=== PATIENT | male | born 1985 | race African-American/Black ===

== ENCOUNTER 2019-02-05 18:45 | Emergency (ER) | payer OTHER ==
[2019-02-05 19:05] VITALS: BP 140/72; PULSE 52; TEMP 98.4; BMI 20.6
[2019-02-05] MEDS ORDERED: KETOROLAC TROMETHAMINE 60 MG/2 ML VIAL IM ONE (19:23)
[2019-02-05] MEDS ORDERED: KETOROLAC TROMETHAMINE 60 MG/2 ML VIAL ONE (19:38)
--- NOTE | 2019-02-05 21:54 | PDOC ---
Documentation entered by Sam Doshi SCRIBE, acting as scribe for Simon Fields MD. Simon Fields MD: This documentation has been prepared by the Tico mora Daniel, SCRIBE, under my direction and personally reviewed by me in its entirety. I confirm that the documentation accurately reflects all work , treatment, procedures, and medical decision making performed by me. History of Present Illness - General Chief Complaint: Toothache Stated Complaint: DENTAL PAIN History Source: Patient Exam Limitations: No Limitations - History of Present Illness Initial Comments: 02/05/19 19:24 The patient is a 33 year old male with no past medical history here today for evaluation of left jaw pain. The patient reports that since he received an injection from his dentist during a procedure he has had intermittent left submental jaw pain that was worse today. He states that the pain is alleviated by massage of his jaw. Allergies: NKA ROS General: No fevers or chills, no weakness, no weight loss HEENT: No change in vision. No sore throat,. No ear pain CardioVascular: No chest pain or shortness of breath Respiratory:No cough, or wheezing. Gastrointestinal: no nausea, vomiting, diarrhea or constipation, No rectal bleeding Genitourinary: No dysuria, hematuria, or frequency Musculoskeletal: +left submental jaw pain. No joint or muscle pain or swelling Neurologic: No headache, vertigo, dizziness or loss of consciousness Psychiatric: nor depression Skin: No rashes or easy bruising Endocrine: no increased thirst or abnormal weight change Allergic: no skin or latex allergy All other systems reviewed and normal PE GENERAL: The patient is awake, alert, and fully oriented, in no acute distress. HEAD: +left submental tenderness to palpation. No masses, no erythema, normal periodontal tissue without any sign of infection, normal dental exam. Normal with no signs of trauma. EYES: Pupils equal, round and reactive to light, extraocular movements intact, sclera anicteric, conjunctiva clear. EXTREMITIES: Normal range of motion, no edema. NEUROLOGICAL: Normal speech, normal gait. PSYCH: Normal mood, normal affect. SKIN: Warm, Dry, normal turgor, no rashes or lesions noted. Assessment and plan: This is a 33-year-old male who comes in complaining of left submental jaw pain. Patient attributed to an injection he had from a dentist. Patient said the pain is intermittent. Patient has not taken anything for the pain. Patient mentation was otherwise normal with no erythema tenderness or infections of the gums or periodontal tissue Patient given Toradol for the pain and a prescription for naproxen sent to his pharmacy Patient told to follow-up with a dentist if symptoms persisted. Past History - Past Medical History Allergies/Adverse Reactions: Allergies Allergy/AdvReac Type Severity Reaction Status Date / Time No Known Allergies Allergy Verified 02/05/19 18:47 Home Medications: Ambulatory Orders Naproxen 500 mg PO BID #14 tablet 02/05/19 COPD: No - Psycho Social/Smoking Cessation Hx Smoking History: Current some day smoker Have you smoked in the past 12 months: Yes Number of Cigarettes Smoked Daily: 1 Information on smoking cessation initiated: Yes Hx Alcohol Use: Yes (OCCASIONAL) *Physical Exam - Vital Signs Last Vital Signs Temp Pulse Resp BP Pulse Ox 98.4 F 52 L 16 140/72 100 02/05/19 18:46 02/05/19 18:46 02/05/19 18:46 02/05/19 18:46 02/05/19 18:46 Discharge - Discharge Information Problems reviewed: Yes Clinical Impression/Diagnosis: Jaw pain, non-TMJ Condition: Good Disposition: HOME - Admission No - Additional Discharge Information Prescriptions: Naproxen 500 mg PO BID #14 tablet - Follow up/Referral - Patient Discharge Instructions Additional Instructions: Get the prescription filled from a naproxen take 1 tablet as often as twice a day with food do not take on an empty stomach If symptoms persist follow-up with your dentist Return to the emergency department immediately with ANY new, persistent or worsening symptoms. Continue any medications as previously prescribed by your physician. You should follow up with your primary doctor as soon as possible regarding today's emergency department visit. . Please make sure your doctor reviews the results of your emergency evaluation. Thank you for coming to the Emergency Department today for your care. It was a pleasure to see you today. Please note that your evaluation is INCOMPLETE until you follow-up with your doctor. - Post Discharge Activity
== END 2019-02-05 19:49 | disposition home or self-care (01) ==
LOC: FER 18:45
PROC: 3E0233Z Introduction of Anti-inflammatory into Muscle, Percutaneous Approach (ICD-10-PCS; principal; 2019-02-05)
DX: R68.84 Jaw pain (principal); F17.210 Nicotine dependence, cigarettes, uncomplicated
CPT/HCPCS: 99281-25